=== PATIENT | female | born 1990 | race African-American/Black ===

== ENCOUNTER 2024-12-30 19:24 | Emergency (ER) | payer MEDICAID ==
[~2024-12-30] VITALS: Ht 175.3 cm; Wt 88.5 kg
[2024-12-30 20:10] VITALS: BP 103/74; TEMP 98
[2024-12-30] MEDS ORDERED: AMOX-430 PO (20:24)
[2024-12-30] MEDS ORDERED: TDAP [DIPH/PERTUSSIS/TET] 0.5 ML VIAL IM ONE (20:43)
[2024-12-30] MEDS: TDAP [DIPH/PERTUSSIS/TET] 0.5 ML VIAL IM ONE (20:47)
[2024-12-30 20:48] VITALS: O2SAT 99
== END 2024-12-30 20:48 | disposition home or self-care (01) ==
LOC: ER 19:28
DX: S81.832A Puncture wound without foreign body, left lower leg, initial encounter (principal); Z60.2 Problems related to living alone; W54.0XXA Bitten by dog, initial encounter; Y93.89 Activity, other specified; Y92.89 Other specified places as the place of occurrence of the external cause; Y99.8 Other external cause status
CPT/HCPCS: 90715